=== PATIENT | female | born 1980 | race Asian ===

== ENCOUNTER 2024-02-26 18:47 | Emergency (ER) | payer OTHER ==
[2024-02-26 19:06] VITALS: TEMP 98.1
[2024-02-26] MEDS ORDERED: XYLOCAINE 1% HCL 20 ML MDV ONE (19:18)
--- NOTE | 2024-02-26 19:26 | ERPHSYRPT ---
- History of Present Illness Time Seen by Provider: 02/26/24 19:20 Source: patient Patient Subjective Stated Complaint: "I fell and hit my head on a sharp board that was on the ground". Triage Nursing Assessment: Pt presents to ER with forehead laceration measuring 3 inches in length, 1cm in diameter, 0.5cm in depth. Pt injuried head after falling and striking head on sharp board that was on the ground. Denies LOC. 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 Pt is alert and oriented. Skin is pink, warm, and dry. Respirations are easy. Pupils are PERRL. Able to ambulate and communicate without difficulty. Physician History: 44yo f presents via private vehicle for laceration of left side forehead. Pt states she was walking through her kitchen that is currently being remodeled, states she stripped over a board and hit her head on a 2x4 that was on the floor. Pt denies LOC, pt does not take blood thinners, no hx of head injury, denies vision changes, AGUIRRE, n/v. Pt is not sure the date of her last tetanus shot. Occurred: just prior to arrival Severity: mild Head Injury Location: frontal Method of Injury: fell Loss of Consciousness: no loss of consciousness Associated Symptoms: No nausea, No vomiting, No shortness of breath, No fever, No headaches Allergies/Adverse Reactions: No Known Drug Allergies Allergy (Verified 02/26/24 19:06) Home Medications: No Reportable Medications [No Reported Medications] 02/26/24 [History] Hx Tetanus, Diphtheria Vaccination/Date Given: No Hx Influenza Vaccination/Date Given: No Hx Pneumococcal Vaccination/Date Given: No Immunizations Up to Date: No Travel Risk - International Travel Have you traveled outside of the country in past 3 weeks: No - Emerging Infectious Disease Are you exhibiting symptoms associated with any current EIDs: No - Review of Systems Constitutional: No Symptoms Eyes: No Symptoms Ears, Nose, & Throat: No Symptoms Respiratory: No Symptoms Cardiac: No Symptoms Abdominal/Gastrointestinal: No Symptoms Neurological: No Dizziness, No Focal Weakness, No Gait Changes, No Headache, No Paralysis, No Parasthesia, No Sensory Changes, No Speech Changes - Past Medical History Pertinent Past Medical History: No - Past Surgical History Past Surgical History: Yes Female Surgical History: Section - Female History Hx Last Menstrual Period: 03/04/24 Hx Now: No - Social History Smoking Status: Never smoker Exposure to second hand smoke: No Drug Use: none - Nursing Vital Signs Nursing Vital Signs: Initial Vital Signs Temperature 98.1 F 02/26/24 18:59 Pulse Rate 62 02/26/24 18:59 Respiratory Rate 18 02/26/24 18:59 Blood Pressure 138/75 02/26/24 18:59 O2 Sat by Pulse Oximetry 100 02/26/24 18:59 Pain Scale Pain Intensity 7 - Katherine Coma Score Best Eye Response (Katherine): (4) open spontaneously Best Verbal Response (Logan): (5) oriented Best Motor Response (Logan): (6) obeys commands Logan Total: 15 - Physical Exam General Appearance: no apparent distress, alert Head Injury: lacerations, No active bleeding, No Milligan's Sign, No contusions, No ecchymosis, No raccoon eyes, No swelling (3cm x 1cm x0.5cm laceration on left anterior forehead) Eye Exam: bilateral eye: normal inspection, PERRL, EOMI ENT Exam: airway nml, nml ext.inspection, No evidence of ENT injury, No dental injury, No midface instability, No hemotympanum Neck Exam: supple, normal alignment, normal inspection, No focal neuro deficit, No tenderness, No mid-line tenderness Cardiovascular/Respiratory Exam: chest non-tender, normal breath sounds, regular rate/rhythm, heart sounds normal Mental Status Exam: alert, oriented x 3, cooperative student driving instructor Exam: normal hearing, normal speech, PERRL Coordination/Gait Exam: normal gait, normal cerebellar function Motor/Sensory Exam: no motor deficit, no sensory deficit, no pronator drift Skin Exam: normal color, warm, dry, laceration SpO2 Interpretation: normal SpO2: 100 O2 Delivery: Room Air Procedures - Laceration/Wound Repair Left Anterior Lateral Head Time of Procedure: 19:45 Wound Location: Left, forehead Wound Length (cm): 3 Wound's Depth, Shape: superficial, linear Wound Explored: no foreign body noted Irrigated: Yes Hibiclens Prep: Yes Anesthesia: local, 1% Lidocaine Volume Anesthetic (ccs): 7 Wound Debrided: minimal Wound Repaired With: sutures Suture Size/Type: 3-0, vicryl Number of Sutures: 6 Layer Closure?: No Sterile Dressing Applied?: No Splint Applied?: No Sling Applied?: No Ordered Tests: Medication Summary Discontinued Medications Generic Name Dose Route Start Last Admin Trade Name Magalys PRN Reason Stop Dose Admin Lidocaine HCl Confirm 02/26/24 19:18 Lidocaine Hcl 1% 20 Ml Mdv 20 Ml Ml Administered 02/26/24 19:19 Dose 5 ml .ROUTE .STK-MED ONE - Progress Progress: improved Progress Note: 02/26/24 20:06 laceration repaired as per procedure note recommended CT head w/o contrast for r/o hemorrhage to which pt refused, stating she could not afford this imaging I informed pt that I do formally recommend head CT but that it is her right to refuse imaging at this time, discussed risks of not obtaining imaging - CVA most notably - pt voiced understanding of risks and still declined imaging Plan for dc home vicryl sutures should absorb, patient needs to go to [facility] in 5-7 days to have sutures removed if not absorbed (pt does not have PCP, will provide list) tylenol/ice for pain management, avoid ibuprofen for bleeding risk keep area clean/dry as much as possible return to ED if: bleeding starts, develop vision changes, develop AGUIRRE that does not resolved w/ pain medicine, develop altered mental status Counseled pt/family regarding: diagnosis, need for follow-up Medical Desision Making - Risk of complications Low Risk: Low risk of morbidity from additional dx testing or treatment - Departure Departure Disposition: Home Clinical Impression: Forehead laceration Qualifiers: Encounter type: initial encounter Qualified Code(s): S01.81XA - Laceration wit hout foreign body of other part of head, initial encounter Condition: Stable Critical Care Time: No Referrals: DOCTOR,NO FAMILY [Primary Care Provider] - Follow up/PCP as directed Additional Instructions: Plan for dc home vicryl sutures should absorb, patient needs to go to [facility] in 5-7 days to have sutures removed if not absorbed (pt does not have PCP, will provide list) tylenol/ice for pain management, avoid ibuprofen for bleeding risk keep area clean/dry as much as possible return to ED if: bleeding starts, develop vision changes, develop AGUIRRE that does not resolved w/ pain medicine, develop altered mental status
[2024-02-26 20:04] VITALS: BP 119/75; PULSE 66; RESP 16
[2024-02-26 20:05] VITALS: O2SAT 100
[2024-02-26] MEDS ORDERED: Adacel Vial IM ONE (20:05)
[2024-02-26] MEDS: Adacel Vial IM ONE (20:06)
== END 2024-02-26 20:20 | disposition home or self-care (01) ==
LOC: ED 18:47
DX: S01.81XA Laceration without foreign body of other part of head, initial encounter (principal); W01.198A Fall on same level from slipping, tripping and stumbling with subsequent striking against other object, initial encounter; Y93.01 Activity, walking, marching and hiking; Y92.000 Kitchen of unspecified non-institutional (private) residence as the place of occurrence of the external cause; Z23 Encounter for immunization
CPT/HCPCS: 12002; 90471; 90715; 99283

== ENCOUNTER 2024-11-19 19:05 | Emergency (ER) | payer OTHER ==
[2024-11-19 19:36] VITALS: TEMP 98.5
--- NOTE | 2024-11-19 20:01 | ERPHSYRPT ---
- History of Present Illness Time Seen by Provider: 11/19/24 19:45 Historian: patient Exam Limitations: no limitations Patient Subjective Stated Complaint: abd pain and nausea, flank pain Triage Nursing Assessment: Pt brought back to ER via wheelchair per spouse. After voiding, pt ambulated to room 8 without diff. Pt c/o RUQ pain which began around 6pm tonight. Pt's pain is in the middle abd region and goes to the RUQ, describes pain as sharp. Pt also c/o flank pain. Pt c/o nausea but denies any vomiting or diarrhea. Abd soft with active bs x4 quad, tender to RUQ on palpation. 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 Pt reports the pain is sharp, was initially 8/10 but now rates the pain 4/10. Pt denies any n/v/d. Pt reports her last BM was earlier today. Pt denies any known fevers at home. Pt denies any dysuria or hematuria. Pt denies any cp, sob. Pt denies any recent travel or change in diet. Timing/Duration: today Activities at Onset: none Quality: sharpness Abdominal Pain Onset Location: RUQ Pain Radiation: epigastric Severity of Pain-Max: moderate Severity of Pain-Current: mild Modifying Factors: Improves With: nothing Associated Symptoms: nausea, No back, No chest pain, No diaphoresis, No diarrhea, No fever/chills, No shortness of breath, No vomiting Allergies/Adverse Reactions: No Known Drug Allergies Allergy (Verified 11/19/24 19:45) Home Medications: No Reportable Medications [No Reported Medications] 02/26/24 [History] Hx Tetanus, Diphtheria Vaccination/Date Given: Yes Hx Influenza Vaccination/Date Given: No Hx Pneumococcal Vaccination/Date Given: No Travel Risk - International Travel Have you traveled outside of the country in past 3 weeks: No - Emerging Infectious Disease Are you exhibiting symptoms associated with any current EIDs: Yes Symptoms: Abdominal Pain - Review of Systems Constitutional: No Symptoms Respiratory: No Symptoms Cardiac: No Symptoms Abdominal/Gastrointestinal: Abdominal Pain, Nausea, No Vomiting, No Diarrhea, No Constipation, No Hematemesis, No Hematochezia Genitourinary Symptoms: No Symptoms - Past Medical History Pertinent Past Medical History: No - Past Surgical History Past Surgical History: Yes Female Surgical History: Section - Female History Hx Last Menstrual Period: 11/08/24 Hx Now: No - Social History Smoking Status: Never smoker Exposure to second hand smoke: No Drug Use: none - Social Determinants of Health Will the patient participate in the screening: Yes Do you worry about a steady place to live?: No Do you have any problems with any of the following?: No known problems In the past 12 months,have you had to go without utilities?: No Transportation Issues: No Has anyone in your support network made you feel unsafe?: No Have you or anyone in your house had to go without enough: No - Nursing Vital Signs Nursing Vital Signs: Initial Vital Signs Temperature 98.5 F 11/19/24 19:32 Pulse Rate 75 11/19/24 19:32 Respiratory Rate 18 11/19/24 19:32 Blood Pressure 155/71 11/19/24 19:32 O2 Sat by Pulse Oximetry 100 11/19/24 19:32 Pain Scale Pain Intensity 5 - Physical Exam General Appearance: no apparent distress, alert Respiratory Exam: normal breath sounds, lungs clear, airway intact, No chest tenderness, No respiratory distress Cardiovascular Exam: regular rate/rhythm, normal heart sounds, normal peripheral pulses Gastrointestinal/Abdomen Exam: soft, normal bowel sounds, tenderness (minimal RUQ TTP), No distention, No guarding SpO2: 100 Ordered Tests: Active Orders 24 hr Category Date Time Status IV Insertion STAT Care 11/19/24 19:58 Active ABDOMEN AND PELVIS W CONTRAST [CT] Stat Exams 11/19/24 19:59 Taken CBC W DIFF Stat Lab 11/19/24 20:00 Completed CMP Stat Lab 11/19/24 20:00 Completed HCG QUALITATIVE, URINE Stat Lab 11/19/24 20:03 Completed LIPASE Stat Lab 11/19/24 20:00 Completed TROPONIN Q4H Lab 11/20/24 00:00 Ordered TROPONIN Q4H Lab 11/20/24 04:00 Ordered TROPONIN Q4H Lab 11/19/24 20:00 Completed UA W/RFX UR CULTURE Stat Lab 11/19/24 20:03 Completed Medication Summary Discontinued Medications Generic Name Dose Route Start Last Admin Trade Name Freq PRN Reason Stop Dose Admin Acetaminophen 975 mg 11/19/24 20:00 11/19/24 20:07 Acetaminophen 325 Mg Tablet PO 11/19/24 20:01 975 mg STAT ONE Administration Acetaminophen Confirm 11/19/24 20:06 Acetaminophen 325 Mg Tablet Administered 11/19/24 20:07 Dose 975 mg .ROUTE .STK-MED ONE Ondansetron HCl 4 mg 11/19/24 19:58 11/19/24 20:07 Ondansetron Hcl 4 Mg/2 Ml Vial IV 11/19/24 19:59 4 mg STAT ONE Administration Ondansetron HCl Confirm 11/19/24 20:06 Ondansetron Hcl 4 Mg/2 Ml Vial Administered 11/19/24 20:07 Dose 4 mg .ROUTE .STK-MED ONE Lab/Rad Data: Laboratory Result Diagrams 11/19/24 20:00 11/19/24 20:00 Laboratory Results 11/19/24 11/19/24 11/19/24 Range/Units 20:03 20:03 20:00 WBC (3.98-10.04) x10^3/uL RBC (3.93-5.22) x10^6/uL Hgb (11.2-15.7) g/dL Hct (34.1-44.9) % MCV (79.4-94.8) fL MCH (25.6-32.2) pg MCHC (32.2-35.5) g/dL RDW (11.7-14.4) % Plt Count (182-369) x10^3/uL MPV (9.4-12.3) fL Gran % (34.0-71.1) % Immature Gran % (Auto) (0.001-0.429) % Nucleat RBC Rel Count (0.00-0.2) % Eos # (Auto) (0.04-0.36) x10^3/uL Immature Gran # (Auto) (0.001-0.031) x10^3u/L Absolute Lymphs (auto) (1.18-3.74) x10^3/uL Absolute Monos (auto) (0.24-0.86) x10^3/uL Absolute Nucleated RBC (0.00-0.012) x10^3u/L Lymphocytes % (19.3-51.7) % Monocytes % (4.7-12.5) % Eosinophils % (0.7-5.8) % Basophils % (0.1-1.2) % Absolute Granulocytes (1.56-6.13) x10^3/uL Basophils # (0.01-0.08) x10^3/uL Sodium (135-145) mmol/L Potassium (3.5-5.1) mmol/L Chloride (98-107) mmol/L Carbon Dioxide (22-30) mmol/L Anion Gap (5-15) MEQ/L BUN (7-17) mg/dL Creatinine (0.52-1.04) mg/dL Estimated GFR ML/MIN Glucose (74-106) mg/dL Calcium (8.4-10.2) mg/dL Total Bilirubin (0.2-1.3) mg/dL AST (14-36) U/L ALT (0-35) U/L Alkaline Phosphatase (38-126) U/L Troponin I < 0.012 (0.000-0.033) ng/mL Serum Total Protein (6.3-8.2) g/dL Albumin (3.5-5.0) g/dL Lipase (23-300) U/L Urine Color Yellow (Yellow) Urine Appearance Clear (Clear) Urine pH 5.0 (4.6-8.0) Ur Specific [place] 1.015 (1.005-1.030) Urine Protein Negative (Negative) Urine Glucose (UA) Negative (Negative) mg/dL Urine Ketones Negative (Negative) Urine Blood Negative (Negative) Urine Nitrite Negative (Negative) Urine Bilirubin Negative (Negative) Urine Urobilinogen 0.2 (0.2) mg/dL Ur Leukocyte Esterase Negative (Negative) U Hyaline Cast (Auto) NONE SEEN (0-2) /LPF Urine Microscopic RBC 0-2 (0-5) /HPF Urine Microscopic WBC 0-2 (0-5) /HPF Ur Epithelial Cells None Seen (None Seen) /HPF Urine Bacteria None Seen (None Seen) /HPF Urine Culture Reflexed NO (NO) Urine HCG, Qual NEGATIVE (NEGATIVE) 11/19/24 11/19/24 Range/Units 20:00 20:00 WBC 13.7 H (3.98-10.04) x10^3/uL RBC 4.36 (3.93-5.22) x10^6/uL Hgb 12.4 (11.2-15.7) g/dL Hct 38.2 (34.1-44.9) % MCV 87.6 (79.4-94.8) fL MCH 28.4 (25.6-32.2) pg MCHC 32.5 (32.2-35.5) g/dL RDW 12.7 (11.7-14.4) % Plt Count 274 (182-369) x10^3/uL MPV 9.0 L (9.4-12.3) fL Gran % 83.3 H (34.0-71.1) % Immature Gran % (Auto) 0.4 (0.001-0.429) % Nucleat RBC Rel Count 0.0 (0.00-0.2) % Eos # (Auto) 0.14 (0.04-0.36) x10^3/uL Immature Gran # (Auto) 0.05 H (0.001-0.031) x10^3u/L Absolute Lymphs (auto) 1.70 (1.18-3.74) x10^3/uL Absolute Monos (auto) 0.35 (0.24-0.86) x10^3/uL Absolute Nucleated RBC 0.00 (0.00-0.012) x10^3u/L Lymphocytes % 12.4 L (19.3-51.7) % Monocytes % 2.6 L (4.7-12.5) % Eosinophils % 1.0 (0.7-5.8) % Basophils % 0.3 (0.1-1.2) % Absolute Granulocytes 11.40 H (1.56-6.13) x10^3/uL Basophils # 0.04 (0.01-0.08) x10^3/uL Sodium 136 (135-145) mmol/L Potassium 3.6 (3.5-5.1) mmol/L Chloride 103 (98-107) mmol/L Carbon Dioxide 26 (22-30) mmol/L Anion Gap 10.5 (5-15) MEQ/L BUN 16 (7-17) mg/dL Creatinine 0.63 (0.52-1.04) mg/dL Estimated GFR 113.5 ML/MIN Glucose 89 (74-106) mg/dL Calcium 9.5 (8.4-10.2) mg/dL Total Bilirubin 0.50 (0.2-1.3) mg/dL AST 26 (14-36) U/L ALT 19 (0-35) U/L Alkaline Phosphatase 73 (38-126) U/L Troponin I (0.000-0.033) ng/mL Serum Total Protein 7.2 (6.3-8.2) g/dL Albumin 4.4 (3.5-5.0) g/dL Lipase 76 (23-300) U/L Urine Color (Yellow) Urine Appearance (Clear) Urine pH (4.6-8.0) Ur Specific [place] (1.005-1.030) Urine Protein (Negative) Urine Glucose (UA) (Negative) mg/dL Urine Ketones (Negative) Urine Blood (Negative) Urine Nitrite (Negative) Urine Bilirubin (Negative) Urine Urobilinogen (0.2) mg/dL Ur Leukocyte Esterase (Negative) U Hyaline Cast (Auto) (0-2) /LPF Urine Microscopic RBC (0-5) /HPF Urine Microscopic WBC (0-5) /HPF Ur Epithelial Cells (None Seen) /HPF Urine Bacteria (None Seen) /HPF Urine Culture Reflexed (NO) Urine HCG, Qual (NEGATIVE) - Progress Progress: improved, pain not gone completely Progress Note: 11/19/24 22:14 CT abd/pel w/ contrast showed: "no comps, markedly distended urinary bladder, R/o outlet obstruction vs neurogenic bladder. Remaining A/P normal pt reports some improvement in abdominal discomfort lab w/u largely unremarkable, nausea improved significantly pt has urinated multiple times while in ED , denies saddle parasthesias, reports no difficulties w/ urination 11/19/24 23:38 plan for discharge home w/ close PCP follow up w/in 7-10d recommend oral hydration w/ plenty of clear liquids and electrolyte containing fluids recommend bland diet return to ED if: become unable to urinate, develop bloody vomit or stools, develop chest pain, develop abdominal pain that does not resolve w/ pain medication, develop fevers that do not resolve w/ tylenol Counseled pt/family regarding: lab results, diagnosis, need for follow-up, rad results Medical Desision Making - Diagnostic Testing Diagnostic test were ordered, analyzed, and reviewed by me: Yes Radiological Interpretation: Reviewed by me, Teleradiologist Report - Risk of complications Minimal Risk: Minimal risk of morbidity - Departure Departure Disposition: Home Clinical Impression: Abdominal pain Qualifiers: Abdominal location: epigastric Qualified Code(s): R10.13 - Epigastric pain Condition: Stable Critical Care Time: No Referrals: DOCTOR,NO FAMILY [Primary Care Provider] - Follow up/PCP as directed Additional Instructions: plan for discharge home w/ close PCP follow up w/in 7-10d recommend oral hydration w/ plenty of clear liquids and electrolyte containing fluids recommend bland diet return to ED if: become unable to urinate, develop bloody vomit or stools, develop chest pain, develop abdominal pain that does not resolve w/ pain medication, develop fevers that do not resolve w/ tylenol
[2024-11-19] MEDS ORDERED: TYLENOL 325 MG ONE (20:06)
[2024-11-19] MEDS ORDERED: Zofran 4 MG/2 ML VIAL ONE (20:06)
[2024-11-19] MEDS: Zofran 4 MG/2 ML VIAL IV ONE (20:07)
[2024-11-19] MEDS: TYLENOL 325 MG PO ONE (20:07)
[2024-11-19 20:08] LABS: HCG URINE TEST NEGATIVE (NEGATIVE)
[2024-11-19 20:10] LABS: Appearance Clear (Clear); Bacteria None Seen /HPF (None Seen); Bilirubin Negative (Negative); Blood Negative (Negative); Epithelial Cells None Seen /HPF (None Seen); Glucose, Urine Negative (Negative); Hyaline Casts NONE SEEN /LPF (0-2); Ketones Negative (Negative); Leukocyte Esterase Negative (Negative); Nitrite Negative (Negative); Protein,Urine Dip Negative (Negative); RBC 0-2 /HPF (0-5); Specific Gravity 1.015 (1.005-1.030); Urobilinogen 0.2 mg/dL (0.2); WBC 0-2 /HPF (0-5)
[2024-11-19 20:16] LABS: BASOPHIL % 0.3 % (0.1-1.2); Basophil (Absolute #) 0.04 x10^3/uL (0.01-0.08); Eosinophil (Absolute #) 0.14 x10^3/uL (0.04-0.36); Hematocrit 38.2 % (34.1-44.9); Hemoglobin 12.4 g/dL (11.2-15.7); IMMATURE GRAN # 0.05 x10^3u/L (0.001-0.031); IMMATURE GRAN % 0.4 % (0.001-0.429); Lymphocytes % 12.4 % (19.3-51.7); Mean Cell Volume 87.6 fL (79.4-94.8); Mean Corpuscular Hemoglobin 28.4 pg (25.6-32.2); Mean Corpuscular Hgb Concent. 32.5 g/dL (32.2-35.5); Monocyte (Absolute #) 0.35 x10^3/uL (0.24-0.86); Monocytes % 2.6 % (4.7-12.5); Neutrophil % 83.3 % (34.0-71.1); Platelet Count 274 x10^3/uL (182-369); Red Blood Count 4.36 x10^6/uL (3.93-5.22); Red Cell Distribution Width 12.7 % (11.7-14.4); White Blood Count 13.7 x10^3/uL (3.98-10.04)
[2024-11-19 20:32] LABS: ALBUMIN 4.4 g/dL (3.5-5.0); ANION GAP 10.5 MEQ/L (5-15); BILIRUBIN,TOTAL 0.5 mg/dL (0.2-1.3); Calcium 9.5 mg/dL (8.4-10.2); Creatinine 1 0.63 mg/dL (0.52-1.04); EST GLOMERULAR FILTRATION RATE 113.5 ML/MIN; Potassium 3.6 mmol/L (3.5-5.1); Total Protein 7.2 g/dL (6.3-8.2)
[2024-11-19 22:42] VITALS: RESP 18
[2024-11-19 23:12] VITALS: BP 117/59; PULSE 69
[2024-11-19 23:42] VITALS: O2SAT 100
--- NOTE | 2024-11-20 08:47 | XRAY ---
Indication: Right upper quadrant pain. Multiple contiguous axial images obtained through the abdomen and pelvis using 80 cc Isovue 370 contrast. Comparison: None Lung bases clear. Heart not enlarged. Stomach mildly fluid distended presumed from recent ingestion. Noncontrasted stomach and bowel loops appear nonobstructed. Normal appendix. No free fluid/air. Urine bladder is markedly distended. Remaining liver, gallbladder, pancreas, spleen, adrenal glands, kidneys, ureters, bladder, uterus, and aorta are unremarkable. No pathologic retroperitoneal lymphadenopathy. Osseous structures intact. No ventral or inguinal hernias. Impression: 1. Markedly distended genic bladder. Rule out outlet objection versus neurogenic bladder. 2. Remaining CT abdomen/pelvis with contrast exam is negative.
== END 2024-11-19 23:48 | disposition home or self-care (01) ==
LOC: ED 19:05
DX: R10.13 Epigastric pain (principal); R10.11 Right upper quadrant pain
CPT/HCPCS: 36415; 74177; 80053; 81001; 81025; 83690; 84484; 85025; 96374; 99284; J2405; A9270-GY